=== PATIENT | male | born 1995 | race African-American/Black ===

== ENCOUNTER 2023-06-20 22:58 | Emergency (ER) | payer SELFPAY ==
[~2023-06-20] VITALS: Ht 175.3 cm; Wt 70.0 kg
[2023-06-20 23:05] VITALS: BP 125/71
[2023-06-20] MEDS ORDERED: ALBUTEROL (0.5%) 2.5MG/0.5ML NEB HHN ONE (23:15)
[2023-06-20 23:35] VITALS: PULSE 81; RESP 16; O2SAT 97
[2023-06-20] MEDS ORDERED: ALBU6.7H15 INH (23:48)
[2023-06-21 01:45] VITALS: PULSE 81; RESP 16; TEMP 98.3
== END 2023-06-21 01:46 | disposition home or self-care (01) ==
LOC: ER 22:58
DX: J45.901 Unspecified asthma with (acute) exacerbation (principal)
CPT/HCPCS: 94640; 99283; Z7610 ×3